=== PATIENT | female | born 2000 | race Two or more races ===

== ENCOUNTER 2021-05-22 23:11 | Emergency (ER) | payer MEDICAID ==
[~2021-05-22] VITALS: Ht 162.6 cm; Wt 57.6 kg
[2021-05-22 23:12] VITALS: BP 119/75
== END 2021-05-23 03:57 | disposition left against medical advice (07) ==
LOC: ER 23:11
DX: L50.9 Urticaria, unspecified (principal); Z53.21 Procedure and treatment not carried out due to patient leaving prior to being seen by health care provider